=== PATIENT | female | born 1985 | race Caucasian/White ===

== ENCOUNTER 2018-04-04 21:51 | Emergency (ER) | payer OTHER ==
[2018-04-04 21:51] VITALS: BMI 26.2
[2018-04-04] MEDS ORDERED: Sodium Chloride 0.9% 1,000 ML IV ONE ×2 (22:50)
--- NOTE | 2018-04-04 22:56 | C.PDOC ---
History Of Present Illness 33 year old female with Hx fo kidney stone presents to the ER with a complaint of left flank pain, associated with nausea and vomiting earlier tonight. Denies fever or chills. Chief Complaint (Nursing): Female Genitourinary History Per: Patient History/Exam Limitations: no limitations Onset/Duration Of Symptoms: Hrs Current Symptoms Are (Timing): Still Present Quality Of Discomfort: Unable To Describe Associated Symptoms: Vomiting, Diarrhea Recent travel outside of the [place]: No Abnormal Vaginal Bleeding: No Past Medical History Reviewed: Historical Data, Nursing Documentation, Vital Signs Vital Signs: Last Vital Signs Temp 99.2 F 04/04/18 22:19 Pulse 103 H 04/04/18 22:19 Resp 22 04/04/18 22:19 BP 132/82 04/04/18 22:19 Pulse Ox 99 04/04/18 22:19 Family History: States: Unknown Family Hx - Social History Hx Alcohol Use: No Hx Substance Use: No - Immunization History Hx Tetanus Toxoid Vaccination: No Hx Influenza Vaccination: No Hx Pneumococcal Vaccination: No Review Of Systems Constitutional: Negative for: Fever, Chills Cardiovascular: Negative for: Chest Pain, Palpitations Respiratory: Negative for: Cough, Shortness of Breath Gastrointestinal: Positive for: Nausea, Vomiting Genitourinary: Negative for: Dysuria, Hematuria Musculoskeletal: Positive for: Other (Left flank pain) Physical Exam - Physical Exam Appears: Non-toxic, Other (Moderate distress due to pain) Skin: Normal Color, Warm, Dry Head: Atraumatic, Normacephalic Eye(s): bilateral: Normal Inspection Oral Mucosa: Moist Chest: Symmetrical, No Tenderness Cardiovascular: Rhythm Regular Respiratory: Normal Breath Sounds, No Rales, No Rhonchi, No Wheezing Gastrointestinal/Abdominal: Soft, No Tenderness Back: CVA Tenderness (Mild left) Neurological/Psych: Oriented x3, Normal Speech ED Course And Treatment O2 Sat by Pulse Oximetry: 99 (Room air) Pulse Ox Interpretation: Normal Progress Note: CT abd/pel, blood work, and urinalysis ordered. IV fluids, toradol, zofran, and flomax administered. Disposition Counseled Patient/Family Regarding: Diagnosis - Disposition Referrals: at [facility] [Outside] Ana María Courtney MD [Staff Provider] - Disposition: HOME/ ROUTINE Disposition Time: 03:28 Condition: STABLE Prescriptions: Ketorolac Tromethamine [Toradol] 10 mg PO Q8 #10 tab Tamsulosin HCl [Flomax] 0.4 mg PO DAILY #7 cap.er.[id number] Instructions: Renal Colic (DC) Forms: [employer] (Romanian) - Clinical Impression Clinical Impression: Renal colic - Scribe Statement The provider has reviewed the documentation as recorded by the Scribe Luis Clay All medical record entries made by the Scribe were at my direction and personally dictated by me. I have reviewed the chart and agree that the record accurately reflects my personal performance of the history, physical exam, medical decision making, and the department course for this patient. I have also personally directed, reviewed, and agree with the discharge instructions and disposition.
[2018-04-05 03:36] VITALS: BP 111/72; PULSE 90; RESP 20; TEMP 99.4; O2SAT 100
[2018-04-05 07:29] LABS: HEMOGLOBIN 10.6 g/dL (11.0-16.0); LYMPH % 11.5 % (20.0-40.0); MEAN CELL VOLUME 78.6 fL (81.0-99.0); MEAN CORPUSCULAR HEMOGLOBIN 26.4 pg (27.0-31.0); MEAN CORPUSCULAR HGB CONC 33.5 g/dL (33.0-37.0); MEAN PLATELET VOLUME 9.2 fL (7.2-11.7); NEUT % 75.5 % (50.0-75.0); RBC 4.02 Mil/uL (3.80-5.20); RED CELL DISTRIBUTION WIDTH 15.7 % (11.5-14.5); WHITE BLOOD COUNT 2.8 K/uL (4.8-10.8)
[2018-04-05 07:30] LABS: BASO % 0.5 % (0.0-2.0); EOS % 1.3 % (0.0-4.0); LYMPH # 0.3 K/uL (1.0-4.3); MONO # 0.3 K/uL (0.0-0.8); MONO % 11.2 % (0.0-10.0); NEUT # 2.1 K/uL (1.8-7.0); NRBC % 0.4 % (0.0-2.0)
[2018-04-05 10:42] LABS: HCG,QUALITATIVE URINE NEGATIVE (NEGATIVE)
[2018-04-05 11:02] LABS: SQUAMOUS EPITHIAL 3 /hpf (0-5); URINE BACTERIA RARE (<OCC); URINE BILIRUBIN NEGATIVE (NEGATIVE); URINE BLOOD 3+ (NEGATIVE); URINE CALCIUM OXALATE CRYSTALS MOD /hpf (<OCC); URINE CLARITY Clear (Clear); URINE COLOR Amber (YELLOW); URINE GLUCOSE (UA) NORMAL (Normal); URINE LEUKOCYTE ESTERASE NEG Leu/uL (Negative); URINE PROTEIN 1+ mg/dL (NEGATIVE)
[2018-04-05 12:33] LABS: BLOOD UREA NITROGEN 12 mg/dL (7-17); GFR NON-AFRICAN AMERICAN > 60
[2018-04-05 12:34] LABS: ALB/GLOB RATIO 0.9 (1.0-2.1); ALBUMIN 3.1 g/dL (3.5-5.0)
[2018-04-05 12:35] LABS: ALT/SGPT 37 U/L (9-52); AST/SGOT 41 U/L (14-36); LIPASE 108 U/L (23-300)
--- NOTE | 2018-04-05 15:40 | CT ---
Date of service: 04/05/2018 PROCEDURE: CT Abdomen and Pelvis without intravenous contrast HISTORY: left flank pain COMPARISON: None. TECHNIQUE: Helical CT of the abdomen and pelvis was performed without oral or intravenous contrast as per referring physician request. Coronal and sagittal reformats were generated. Contrast dose: None Radiation dose: Total exam DLP = 852.73 mGy-cm. This CT exam was performed using one or more of the following dose reduction techniques: Automated exposure control, adjustment of the mA and/or kV according to patient size, and/or use of iterative reconstruction technique. FINDINGS: LOWER THORAX: Linear atelectasis is appreciated at the bilateral lung bases. No pleural or pericardial effusion or cardiomegaly. LIVER: A shrunken nodular liver is appreciated suggestive of cirrhosis. 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 These would be better identified under contrast CT. A gross hepatic mass not clearly evident at this time with liver better evaluated under contrast CT as well. GALLBLADDER AND BILE DUCTS: Unremarkable. PANCREAS: Unremarkable. No gross lesion or ductal dilatation. SPLEEN: There is gross splenomegaly which measures 18.4 x 16.0 cm. ADRENALS: Unremarkable. No mass. KIDNEYS AND URETERS: Mild left hydronephrosis appears to be caused by a small 2.5 mm obstructing calculus at the left ureteropelvic junction with limited left perinephric reaction present. Infrequent punctate punctate intrarenal calculi are identified at the upper middle and lower pole left kidney and also at the lower pole right kidney with no right hydronephrosis identified. VASCULATURE: Unremarkable. No aortic aneurysm. No aortic atherosclerotic calcification or mural plaque present. BOWEL: Unremarkable. No obstruction. No gross mural thickening. APPENDIX: Unremarkable. Normal appendix. PERITONEUM: Trace fluid is identified in the pelvis cephalad to the uterus, of uncertain origin. LYMPH NODES: Unremarkable. No enlarged lymph nodes. BLADDER: Urinary bladder is decompressed Royer decompressed and poorly evaluated. REPRODUCTIVE: Intrauterine device identified in situ within the endometrial cavity. BONES: No acute fracture. OTHER FINDINGS: None. IMPRESSION: 1. Clinical presentation of left flank pain likely a function of mild left hydronephrosis caused by 2.5 mm obstructing calculus left UPJ. Prominent left splenomegaly is appreciated potentially impressing left kidney to some degree. Clinically correlate as to potential contribution to symptoms from this. 2. No right hydronephrosis although punctate intrarenal calculi identified minimally at the right kidney as well as scattered at the left kidney intrarenal collecting system. Please see discussion above. 3. Findings compatible with cirrhotic liver with likely a pattern of hepatofugal blood flow causing multifocal varices and prominent splenomegaly as per above. Contrast CT can better define these findings. 4. Other lesser findings as discussed above. [facility] 2[facility]58 a.m..
== END 2018-04-05 03:36 | disposition home or self-care (01) ==
LOC: C.ER 21:51
DX: N13.2 Hydronephrosis with renal and ureteral calculous obstruction (principal)
CPT/HCPCS: 74176; 80053; 81001; 83690; 84703; 85025; 96361; 96374; 96375; 99283; J1885; J2405; J7030